=== PATIENT | female | born 1975 | race Caucasian/White ===

== ENCOUNTER → 2017-02-02 | Outpatient (CLI) | payer BC ==
[~2017-02-02] MED LIST: COLACE-DPS100 MG PO; CULTURELLE1 CAP PO; DULCOLAX-DPS10 MG PR; MILK OF MAGNESI10 ML PO; MIRALAX PACKET17 GM PO; MOTRIN-DPS400 MG PO; MOTRIN-DPS800 MG PO; MYLICON DPS80 MG PO; PERCOCET 5 DPS1 TAB PO; PROBIOTIC1 EAC3 PO; THERA1 EACH PO; TYLENOL EXTRA500 M1 PO; VALTREX DPS500 MG PO
== END | disposition home or self-care (01) ==
LOC: RAD.S 07:37
DX: Z12.31 Encounter for screening mammogram for malignant neoplasm of breast (principal); Z80.3 Family history of malignant neoplasm of breast

== ENCOUNTER 2017-02-05 05:33 | Observation (INO) | payer BC ==
[~2017-02-05] VITALS: Ht 152.4 cm; Wt 49.8 kg
--- NOTE | ~2017-02-05 | HP ---
ADMIT: 02/05/2017 RM/LOC: [facility] MR#: [id number] [id number] [place], [place] [address] BRITTANEY KWON [address] [place] [address] Pre-OP History and Physical SEX: F AGE: 41 : 1975 DATE OF SERVICE: CHIEF COMPLAINT: Heavy periods despite medical management, and uterine fibroids. HISTORY OF PRESENT ILLNESS: This is a 41-year-old female, 3, para 2-0- 1-2, who presented to the office initially in December of this year with complaints of heavy and irregular periods. She remembers irregular and heavy periods at the start of menarche and started oral contraceptive pills because of this. At this time, she reports bleeding through a tampon in less than 45 minutes. She has been on several different oral contraceptive pills. However, she continues to have heavy periods with each of them. She did have a pelvic ultrasound in December of 2016, which demonstrated an enlarged uterus measuring 11.7 x 4 x 6.8 cm with multiple fibroids, the largest measuring 26 mm. The endometrial stripe appeared to be 7 mm. There also was a complex mass measuring 4.4 cm in the left adnexa, this appeared to be separate from the ovary and could represent either a paraovarian cystic structure or a pedunculated fibroid. She did have an endometrial biopsy that was benign showing secretory phase endometrium. She has had normal TSH and normal CBC. We have discussed treatment options for her heavy periods and fibroid uterus and at this time, she would like to proceed with definitive surgical management with hysterectomy. PAST MEDICAL HISTORY: She denies hypertension, diabetes, asthma, kidney or thyroid disease. She does have a history of cold sores in the past. PAST SURGICAL HISTORY: x2, D and C, and a cholecystectomy in 2013. SOCIAL HISTORY: She is . She denies tobacco, alcohol, or drug use. ALLERGIES: NO KNOWN DRUG ALLERGIES. CURRENT MEDICATIONS: 1. Multivitamin daily. 2. Acidophilus daily. 3. Valtrex as needed. 4. Necon . REVIEW OF SYSTEMS: GENERAL: She denies any recent weight gain, weight loss, fevers, or chills. HEENT: She denies headaches, vision changes, difficulty swallowing, or sore throat. NECK: She denies neck pain or stiffness. RESPIRATORY: She denies difficulty breathing, coughing, or shortness of breath. CARDIOVASCULAR: She denies palpitations, chest pain, or shortness of breath. GASTROINTESTINAL: She denies abdominal pain, diarrhea, constipation, or blood in her stools. FEMALE GENITOURINARY: She does report excessive periods, some menstrual ADMIT: 02/05/2017 RM/LOC: [facility] MR#: [id number] [address] [address] BRITTANEY KWON [facility] [address], [place] [address] Pre-OP History and Physical SEX: F AGE: 41 : 1975 irregularities, and clots during her menses. She denies history of dysuria, frequency, urgency, or hematuria. MUSCULOSKELETAL: She denies joint pain, muscle pain, or muscle weakness. NEUROLOGIC: She denies dizziness or weakness in her extremities. PSYCHIATRIC: She denies any history of anxiety or depression. ENDOCRINE: She denies any history of diabetes or thyroid problems. HEMATOLOGIC: She denies history of anemia, blood clots, bleeding disorders, prolonged or spontaneous bleeding. PHYSICAL EXAMINATION: VITAL SIGNS: Height is 61 inches. Weight 110 pounds. Blood pressure 104/74. Body mass index is 20.81. GENERAL: This is a pleasant female, in no acute distress. HEENT: Head is normocephalic, atraumatic. Pupils are equal, round, and reactive to light and accommodation. Extraocular muscles are intact. NECK: Supple. HEART: Regular rate and rhythm. LUNGS: Clear bilaterally. ABDOMEN: Soft, nontender, and nondistended. EXTREMITIES: Nontender. PELVIC: Performed in December of 2016 showed normal female external genitalia. Bartholin, urethral, and [place]'s glands are normal. The vulva and vagina are normal. The uterus is anteverted, mobile. There are no palpable adnexal masses. IMPRESSION: 1. This is a 41-year-old female, 3, para 2-0-1-2 with menorrhagia, unresponsive to medical management. 2. Fibroid uterus. PLAN: At this time, we do plan to proceed with a hysterectomy. We have reviewed the risks, benefits, and alternatives, including but not limited to the risks for bleeding, infection, potential for injury to the bowel, bladder, major vessels, or other nearby organs requiring repair. We have also discussed ovarian conservation versus removal of her ovaries, and reviewed the lifetime risk of ovarian cancer is approximately 1 in 70, as well as a lifetime risk of needing another surgery to remove her ovaries at a later time is approximately 1 in 20. At this time, she would like to leave her ovaries if they appear normal. We have discussed the possible route of hysterectomy and given her enlarged uterus with fibroids and her history of two previous C-sections, I ADMIT: 02/05/2017 RM/LOC: [facility] MR#: [id number] [address] [place] [id number] BRITTANEY KWON [address], [place] [address] Pre-OP History and Physical SEX: F AGE: 41 : 1975 recommended starting with a laparoscopic approach. If necessary, we will convert to an abdominal approach. We have reviewed the risk for anesthesia including myocardial infarction, stroke, and . We have also discussed the potential need for blood transfusion and the risks associated with this. She does agree to a blood transfusion if needed. She understands there are alternative options for treatment, but agrees to proceed with a hysterectomy at this time. Therefore, we will proceed with a total laparoscopic hysterectomy, possible bilateral salpingo-oophorectomy, and possible abdominal hysterectomy if needed. EDIT: 02/04/20172012 ajf EDIT: 02/05/2017 0500 njv Christa Melissa MD/ [facility] JOB #: [id number] CC: Christa Melissa, Attending Physician UNKNOWN, Family Physician
[2017-02-07] MEDS ORDERED: VALTREX DPS500 MG PO (09:45)
[2017-02-07] MEDS ORDERED: CULTURELLE1 CAP PO (09:46)
[2017-02-07] MEDS ORDERED: THERA1 EACH PO (09:46)
[2017-02-07] MEDS ORDERED: COLACE-DPS100 MG PO (09:46)
[2017-02-07] MEDS ORDERED: MILK OF MAGNESI10 ML PO (09:46)
[2017-02-07] MEDS ORDERED: PERCOCET 5 DPS1 TAB PO (09:47)
[2017-02-07] MEDS ORDERED: MOTRIN-DPS800 MG PO (09:47)
--- NOTE | 2017-02-26 09:42 | OR ---
ADMIT: 02/05/2017 RM/LOC: [address] [facility] MR#: [id number] [address] [address] BRITTANEY KWON [address] [place] [address] Operative/Delivery Room Report SEX: F AGE: 41 : 1975 SURGERY DATE: 02/05/2017 SURGEON: Christa Melissa MD PREOPERATIVE DIAGNOSES: 1. Menorrhagia, unresponsive to medical management. 2. Uterine fibroids. POSTOPERATIVE DIAGNOSES: 1. Menorrhagia, unresponsive to medical management. 2. Uterine fibroids. PROCEDURE: Total laparoscopic hysterectomy with bilateral salpingectomy and cystoscopy. SORTER LUMBER STRAIGHTENER: Brenda Cuellar MD. ANESTHESIA: General endotracheal. COMPLICATIONS: None. ESTIMATED BLOOD LOSS: 100 mL. FLUIDS: Crystalloid. INDICATIONS: This is a 41-year-old female, who was seen and evaluated preoperatively secondary to heavy periods, unresponsive to oral contraceptive pills. She did have a pelvic ultrasound demonstrating multiple uterine fibroids. We did review treatment options and the risks and benefits of each. At this time, she would like to proceed with definitive surgical management in the form of hysterectomy. We have also discussed ovarian conservation and she would like to keep her ovaries if they do appear normal. FINDINGS: Enlarged uterus with multiple fibroids, approximately 4 cm, left- sided broad ligament fibroid. Normal-appearing ovaries bilaterally. Normal- appearing tubes bilaterally. Normal-appearing large and small bowel. Normal- appearing liver edge. DESCRIPTION OF PROCEDURE: The patient was properly identified. Informed consent was obtained. She was then taken to the operating room where general anesthesia was established. She was then placed in the dorsal lithotomy position and prepped and draped in the usual sterile fashion. The Duque catheter was inserted in the bladder. A bivalve speculum was placed and the cervix was grasped with a single-tooth tenaculum. The cervix was dilated and a VCare uterine manipulator was then advanced. The tenaculum and speculum were removed and the cup of the VCare was advanced up and around the cervix. Attention was then turned to the patient's abdomen. Marcaine 0.25% was injected at the umbilicus and a 5 mm skin incision was made. The Veress needle was then advanced while tenting the abdominal wall. The abdomen was ADMIT: 02/05/2017 RM/LOC: [address] [facility] MR#: [id number] [address] [facility] [address] [place], [place] [address] BRITTANEY KWON [address] [place] [address] Operative/Delivery Room Report SEX: F AGE: 41 : 1975 insufflated. The Veress needle was then removed. A 5 mm trocar was then advanced while tenting the abdominal wall. Intraabdominal placement was confirmed with the laparoscope. The patient was placed in Trendelenburg. A second 5 mm port was then placed in the right lower quadrant. This was done under direct visualization without any difficulty. A third 5 mm trocar was then placed in the left lower quadrant. Again, this was done under direct visualization without any difficulty. At this time, the patient's right fallopian tube was grasped using the Thunderbeat instrument. The mesosalpinx was sealed and transected. The utero-ovarian ligament was then sealed and transected, followed by the round ligament. The anterior leaf of the broad ligament was then opened towards the midline creating a bladder flap. The posterior leaf of the broad ligament was then opened posteriorly towards the midline. The uterine artery was identified and sealed and attention was then turned to the patient's left side. In a similar manner, the fallopian tube was grasped. The mesosalpinx was sealed and transected, followed by the utero- ovarian ligament and round ligament. The anterior leaf of the broad ligament was then opened towards the midline creating a bladder flap. The posterior leaf of the broad ligament was then opened posteriorly. The uterine artery was identified. On this side, it was a little bit more difficult given the broad ligament fibroid. However, this was sealed and transected. The tissues around the cervix were transected. A posterior colpotomy incision was then made with a Thunderbeat. The VCare manipulator was identified and the dissection was carried circumferentially around the cervix. Once the cervix was completely transected from the vagina, the uterus, cervix, and bilateral tubes were removed through the vagina. The vaginal cuff was then closed with [id number] sutures of 0 Vicryl and this was done via a vaginal approach. Attention was then turned back up to the patient's abdomen. The abdomen was then reinsufflated. The pelvis was copiously irrigated and all the pedicles were noted to be hemostatic. The gas was then allowed to escape from the patient's abdomen. The trocars were removed. The skin incisions were closed with 3-0 Vicryl. Steri-Strips and OPSITE's were placed. The Duque catheter was then removed from the patient's bladder. The cystoscope was then gently advanced into the bladder. The bladder was filled. The bladder was noted to be intact. Both ureters were seen effluxing clear urine. The bladder was then drained. The cystoscope was removed. The patient tolerated the procedure well. Sponge, lap, needle, and instrument counts were correct. She was taken to the recovery room in stable condition. Christa Melissa MD/ [facility] JOB #: [id number] CC: Christa Melissa MD, Attending Physician Brittaney Boyer MD, Family Physician
== END 2017-02-06 17:42 | disposition home or self-care (01) ==
LOC: 2LDRP 05:33 → WOR 05:33 → 2LDRP 10:45
PROVIDERS: ADMIT Obstetrics & Gynecology
PROC: 0UTC4ZZ Resection of Cervix, Percutaneous Endoscopic Approach (ICD-10-PCS; principal; 2017-02-05)
PROC: 0UB74ZZ Excision of Bilateral Fallopian Tubes, Percutaneous Endoscopic Approach (ICD-10-PCS; principal; 2017-02-05)
PROC: 0UT94ZZ Resection of Uterus, Percutaneous Endoscopic Approach (ICD-10-PCS; principal; 2017-02-05)
DX: D25.9 Leiomyoma of uterus, unspecified (principal); N72 Inflammatory disease of cervix uteri; N80.0 Endometriosis of uterus; Z98.890 Other specified postprocedural states; Z79.899 Other long term (current) drug therapy; Z90.49 Acquired absence of other specified parts of digestive tract

== ENCOUNTER 2017-02-11 12:15 | Observation (INO) | payer BC ==
[~2017-02-11] VITALS: Ht 152.4 cm; Wt 49.4 kg
[~2017-02-11 12:15] MED LIST changes: -DULCOLAX-DPS10 MG PR; -MIRALAX PACKET17 GM PO; -MOTRIN-DPS400 MG PO; -MYLICON DPS80 MG PO; -PROBIOTIC1 EAC3 PO; -TYLENOL EXTRA500 M1 PO
[2017-02-14] MEDS ORDERED: THERA1 EACH PO (16:02)
[2017-02-14] MEDS ORDERED: PROBIOTIC1 EAC3 PO (16:02)
[2017-02-14] MEDS ORDERED: VALTREX DPS500 MG PO (16:02)
[2017-02-14] MEDS ORDERED: MILK OF MAGNESI10 ML PO (16:03)
[2017-02-14] MEDS ORDERED: COLACE-DPS100 MG PO (16:03)
[2017-02-14] MEDS ORDERED: MOTRIN-DPS400 MG PO (16:03)
[2017-02-14] MEDS ORDERED: MYLICON DPS80 MG PO (16:04)
[2017-02-14] MEDS ORDERED: DULCOLAX-DPS10 MG PR (16:04)
[2017-02-14] MEDS ORDERED: TYLENOL EXTRA500 M1 PO (16:04)
[2017-02-14] MEDS ORDERED: MIRALAX PACKET17 GM PO (16:04)
--- NOTE | 2017-03-23 09:41 | DS ---
ADMIT: 02/11/2017 RM/LOC: 630 [facility] MR#: [id number] [address] [address] BRITTANEY KWON [address] [place] [address] General Discharge Summary SEX: F AGE: 41 : 1975 ADMISSION DATE: 02/11/2017 DISCHARGE DATE: 02/14/2017 PRIMARY DIAGNOSES: 1. Status post total laparoscopic hysterectomy postoperative day 9. 2. Postoperative ileus. HOSPITAL COURSE: This is a 41-year-old female, who was admitted for observation on postoperative day 6 secondary to nausea, vomiting, increasing abdominal distention, and lightheadedness. She was diagnosed with a postoperative ileus. Abdominal x-ray was consistent with this diagnosis. She was started on IV fluids as well as IV antiemetics and initially kept n.p.o. On hospital day #2, she was given clear fluids; however, her abdominal distention worsened at that time. With conservative management, she eventually did start passing gas and did have a stool, she was able to tolerate clears. Her abdominal pain did improve. By hospital day #4 and postoperative day #9, she was deemed stable for discharge and dismissed to home. DISCHARGE INSTRUCTIONS: She was advised to call with worsening abdominal pain, abdominal distention, nausea, or vomiting. She was also advised to call with any erythema or drainage of her abdominal incisions or vaginal bleeding greater than 1 pad an hour. She was advised to continue Motrin and Tylenol as needed for pain and to follow [id number] instructions. She was also instructed she could continue Dulcolax suppository b.i.d. and her home medications. She was instructed to follow up as previously scheduled in the office. CONDITION ON DISCHARGE: Stable. DISPOSITION: The patient was dismissed to home. Christa Melissa MD/ [facility]co JOB #: [id number] CC: Christa Melissa MD, Attending Physician Brittaney Boyer MD, Family Physician
== END 2017-02-14 13:10 | disposition home or self-care (01) ==
LOC: 6PED 12:15
PROVIDERS: ADMIT Obstetrics & Gynecology
DX: K91.89 Other postprocedural complications and disorders of digestive system (principal); Z90.710 Acquired absence of both cervix and uterus

== ENCOUNTER → 2017-04-14 | Outpatient (CLI) | payer BC ==
[~2017-04-14] MED LIST changes: +DULCOLAX-DPS10 MG PR; +MIRALAX PACKET17 GM PO; +MOTRIN-DPS400 MG PO; +MYLICON DPS80 MG PO; +PROBIOTIC1 EAC3 PO; +TYLENOL EXTRA500 M1 PO
== END | disposition home or self-care (01) ==
LOC: RAD.S 13:58
DX: R10.13 Epigastric pain (principal); N94.89 Other specified conditions associated with female genital organs and menstrual cycle; R11.2 Nausea with vomiting, unspecified; R14.0 Abdominal distension (gaseous); Z90.710 Acquired absence of both cervix and uterus; Z90.49 Acquired absence of other specified parts of digestive tract